=== PATIENT | female | born 1985 | race Caucasian/White ===

== ENCOUNTER 2023-11-04 10:03 | Outpatient (CLI) | payer MEDICAID, SELFPAY ==
--- OUTSIDE RECORDS SUMMARY | 2023-11-10 09:31 | XMS_ITS | Patient Health Record ---
Author Name Unknown Organization [facility] Address [address] [facility] [address] [place] [address] Care Team Providers Care Cable Tv Installer Name Role Phone Chaya HANDY, Aparna Primary Care Provider Shannon Hilario Unavailable [phone] ALLERGIES Allergen (clinical drug ingredient) Drug/Non Drug Allergy documented on EMR Reaction Allergy Type Onset Date Status Penicillin (uncoded) Unknown Allergy Active Trihydrate (uncoded) Unknown Allergy Active ampicillin Ampicillin Unknown Drug Allergy Activ e REASON FOR REFERRAL No Information MEDICATIONS Medication SIG (Take, Route, Frequency, Duration) Notes Start Date End Date Status Isibloom 0.15-30 MG-MCG 1 tablet Orally Once a day for 28 day(s) Active Premsyn PMS 500-25-15 MG 2 tablets as ne eded Orally every 6 hrs Active Fruity Chews/Iron 1 tablet Orally qd Active MiraLax as directed Orally 07/18/2013 Active Melatonin Gummies 2.5 MG 2 gummies (5mg) Active LORazepam 1mg 1 mg Orally 30 minut es prior to dental appointments Active Depakote Sprinkles (125 MG) 4 capsules ( 500mg) Orally three times daily for 30 days Active levOCARNitine (330 MG) 1 tablet (330mg) Orally Twice a day for 30 days Active Vitamin D3 50 MCG (2000 UT) 1 capsule Or ally Once a day for 30 day(s) Active Calcium 600 MG 1 tablet Orally Once a day Active hydrOXYzine Pamoate 100 mg 1 tablet 90 m inutes prior to dental appointment Orally Active SOCIAL HISTORY Sex Assigned At : Social History Observation Description Sex Assigned At Unknown Alcohol Question Answer Notes Did you have a drink containing alcohol in the p ast year? No Points 0 Interpretation Negative Tobacco Use Question Answer Notes Are you a: No PROBLEMS Problem Type ICD Code Onset Dates Problem Status W/U Status Risk SNOMED Code Notes Problem Autistic disorder, current or active state (299.00) Active confirmed Active infantil e autism (227902242) Problem Anxiety state, unspecified (300.00) Active confirmed Anxiety state (207661466) Problem Severe mental retardation (318.1) Active confirmed Severe mental retardation (Intelligence Quotient 20-34) (19508726) Problem Localization-re lated (focal) (partial) epilepsy and epileptic syndromes with complex partial seizures, with intractable epilepsy (345.41) Active confirmed Epilepsy characterized by intractable complex partial seizures (532914638) Problem Unspecified epilepsy without mention of intractable epilepsy (345.90) Active confirmed Epilepsy (44274426) Problem Abnormal weight gain (783.1) Active confirmed Abnormal weight gain (801660297) Problem 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 confirmed Symbolic dysfunction (271477262) Problem Single seizure (780.39) Active confirmed Single seizure (002068969) Problem Other generalized epilepsy and epileptic syndromes, not intractable, 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) Active confirmed Generalized epilepsy (27850465) Problem Other epilepsy, not intractable, without status epilepticus (G40.802) Active confirmed Epilepsy, not intractable (055233042) Problem Other piano mechanic apprentice (current) drug therapy (Z79.899) Active confirmed Long-term curre nt use of drug therapy (534177380) VITAL SIGNS Heart Rate 87 /min 03/17/2023 Blood pressure diastolic 81 mm Hg 03/17/2023 Height-cm 172.72 cm 03/17/2023 Height 68 in 03/17/2023 Blood pressure systolic 137 mm Hg 03/17/2023 Weight 112.5 kg 03/17/2023 BMI 37.71 kg/m2 03/17/2023 Encounters Encounter Location Date Provider Diagnosis [facility] [address] [place] [address] 03/17/2023 Shannon Raza Other epilepsy, not intractable, without status epilepticus G40.802 ; Other piano mechanic apprentice (current) drug therapy Z79.899 and Other generalized epilepsy and epileptic syndromes, not intractable, without status epilepticus G40.409 [facility] [address] [place] [address] 01/27/2023 Shannon Raza [facility] [address] [place] [address] 01/31/2023 Shannon Raza ASSESSMENTS Encounter Date Diagnosis Assessment Notes Treatment Notes Treatment Clinical Notes 03/17/2023 Other epilepsy, not intractable, without status epilepticus (ICD-10 - G40.802) 03/17/2023 Other piano mechanic apprentice (current) drug therapy (ICD-10 - Z79.899) 03/17/2023 Other generalized epilepsy and epileptic syndromes, not intractable, without status epilepticus (ICD-10 - G40.409) PLAN OF TREATMENT Pending Test Test Name Order Date VALPROIC ACID, TOTAL & FREE 10/01/2019 VALPROIC ACID, TOTAL & FREE 11/24/2020 VALPROIC ACID, TOTAL & FREE 01/28/2022 COMPREHENSIVE METABOLIC PANEL 11/24/2020 COMPREHENSIVE METABOLIC PANEL 10/01/2019 COMPREHENSIVE METABOLIC PANEL 01/28/2022 CBC (INCLUDES DIFF/PLT) 10/01/2019 CBC (INCLUDES DIFF/PLT) 11/24/2020 CBC (INCLUDES DIFF/PLT) 01/28/2022 AMMONIA (P) 11/24/2020 AMMONIA (P) 10/01/2019 Future Test Test Name Order Date HEPATIC FUNCTION PANEL 03/17/2023 CBC (INCLUDES DIFF/PLT) 03/17/2023 VALPROIC ACID 03/17/2023 VALPROIC ACID, FREE 03/17/2023 Insurance Providers Payer Name Payer Address Payer Phone Subscriber Number Group Number Insured Name Patient Relationship to Insured Coverage Start Date Coverage End Date [place] [address] [address] [place] [address] [id number] Sidra Ndiaye Self - patient is the insured MEDICAL (GENERAL) HISTORY Medical History History ICD Code Epilepsy, onset at age 3. Mental retardation. Autistic behaviors. Surgical History Surgery Date(Month/Year) none Hospitalization History Reason Date(Month/Year) mental health reasons 07/2012
--- OUTSIDE RECORDS SUMMARY | 2023-11-10 09:31 | XMS_ITS | Clinical Summary ---
Author Name Unknown Organization [facility] Address [place], [place] [address] Care Team Providers Care Plate Painter Name Role Phone Enma Larkin MD Primary Care Prov ider Peter August MD Unavailable [phone] Allergies Active Allergy Reactions Criticality Noted Date Comments Ampicillin 07/11/2007 Unlisted Allergen (Include D etail In Comments) *Unknown 11/14/2017 Trihydrate Penicillins 07/11/2007 Medications Medication Sig Dispensed Refills Start Date End Date Status ibuprofen (ADVIL; MOTRIN) 200 mg tablet Take 1 tablet by mouth every 4 hours if needed. 90 tablet 12 08/06/2014 Active acetaminophen (TYLENOL) 325 mg tabletIndications:P ain Take 2 Tablets (650 mg) by mouth every 4 hours if needed. Max acetaminophen dose: 4000mg in 24 hrs. 90 tablet. 3 07/30/2021 Active Calcium-Cholecalcif syeda, D3, (CALCIUM 500+D) 500 mg(1,250mg) -400 unit chewable tabletIndications:E ncounter for herb and vitamin supplement management Take 1 tablet by mouth once daily. 90 Tablet 4 07/30/2021 Active cholecalciferol (Vitamin D-3) 2,000 unit capsuleIndications: Vitamin D deficiency Take 1 Capsule (2,000 units) by mouth once daily. 90 capsule. 3 07/30/2021 Active multivit with min-folic acid (One-A-Day VitaCraves) 200 mcg chewIndications:Enc ounter for herb and vitamin supplement management Chew by mouth. 180 Tablet 4 07/30/2021 Active medication order composerIndications :Severe intellectual disabilities Over the counter mouth wash daily 0 01/07/2022 Active levOCARNitine (CARNITOR) 330 mg tabletIndications:P ervasive developmental disorder TAKE ONE TABLET BY MOUTH TWICE A DAY AFTER MEALS FOR SEIZURE 180 tablet. 4 08/02/2022 Active divalproex sprinkles (DEPAKOTE SPRINKLES) 125 mg capsuleIndications: Convulsions, unspecified convulsion type (HC) TAKE 4 CAPS (500MG) BY MOUTH THREE TIMES DAILY 372 Capsule 2 01/13/2023 Active acetaminophen-parab rom-pyrilam (Premsyn PMS) 500-25-15 mg tabIndications:PMDD (premenstrual dysphoric disorder) Multi symptom Pamprin 90 Tablet 4 08/04/2023 Active desogestrel-ethinyl estradiol 0.15-30 mg-mcg (Isibloom) tabletIndications:S evere intellectual disabilities Take 1 Tablet by mouth once daily. 84 Tablet 4 08/04/2023 Active Disposable Gloves pckgIndications:Sev ere intellectual disabilities As directed. 400 Each 4 08/04/2023 Active hydrOXYzine pamoate (VISTARIL) 50 mg capsuleIndications: Severe intellectual disabilities,Anxiet y state TAKE two CAPSULES BY MOUTH ONCE PRIOR TO DENTAL PROCEDURES. Hold until staff calls 2 Capsule 4 08/04/2023 Active LORazepam (ATIVAN) 1 mg tabletIndications:O ther dental procedure status TAKE 3 TABLETS BY MOUTH 90 MINUTES PRIOR TO DENTAL APPOINTMENTS. Hold until calls 3 Tablet 0 08/04/2023 Active melatonin 2.5 mg chewIndications:Ins omnia, idiopathic Chew 5 mg by mouth. may take additional 2.5 mg dose (in addition to regular 5 mg) if needed. ( Per standing orders) 90 Tablet 4 08/04/2023 Active polyethylene glycoL (Gavilax) 17 gram/scoop powderIndications:C onstipation, unspecified constipation type MIX 17GMS IN LIQUID AND DRINK ONCE DAILY (MAY TAKE TWICE DAILY IF NEEDED) 1530 g 3 08/04/2023 Active pseudoephedrine (SUDAFED) 30 mg tabletIndications:N bety congestion Take 2 Tablets (60 mg) by mouth every 6 hours if needed for Nasal Congestion. 20 Tablet 5 08/04/2023 Active Active Problems Problem Noted Date Diagnosed Date Active infantile autism 01/07/2022 Seasonal affective disorder 10/03/2018 Unexplained weight gain 11/23/2013 Localization-related (focal) (partial) epilepsy and epileptic syndromes with complex partial seizures, with intractable epilepsy 11/13/2013 Anxiety State, Unspecified; episodic 07/28/2009 Severe intellectual disabilities Other convulsions Overview: Dr. Hailee Obrien Unspecified pervasive develo pmental disorder, residual state Overview: with Autism Other symbolic dysfunction(784.69) Overview: Speech and motor Immunizations Name Administration Dates Next Due AMB Influenza, IIV4 PF (=>6 mos Flulaval,Fluzone Fluarix)(Flu Clinic Only) 08/29/2018 COVID-19 vaccine (Moderna 100mcg/0.5mL) PF, MDV 01/22/2021,12/24/2020 DT (Age < 7 years) 04/13/1990 Influenza, IIV3 (Age >=3 years) 08/02/2013 Influenza, IIV4 08/04/2023, 2,09/01/2021,2020,07/29/2020,07/16/2019,08/02/2017,1 Influenza, IIV4 (=>6mos) MDV 08/07/2015 Oral Polio Vaccine 04/28/1987,10/04/1986, 985 Td, Preservative Free (age > = 7 Years) 12/07/2016 Tdap 07/11/2007 Tuberculin (PPD) 07/15/2008,07/11/2007 Family History Medical History Relation Name Comments Unknown Father Unknown Mother Relation Name Status Comments Father Mother Social History Tobacco Use Types Packs/Day Years Used Date Smoking Tobacco: Never Smokeless Tobacco: Never Tobacco Cessation:Counseling Given: Yes Comments:parents smoke, she visits them every other weekend Alcohol Use Standard Drinks/Week Comments No 0 (1 standard drink = 0.6 oz pur e alcohol) PHQ-2 Answer Date Recorded PHQ-2 Score 0 12/31/2018 Social Connections Answer Date Recorded Frequency of Communication with Friends and Fami ly Not on file 06/15/2023 Financial Resource Strain Answer Date R ecorded Difficulty of Paying Living Expenses 3 06/02/2022 Difficulty of Paying Living Expenses Not on file 06/02/2022 Food Insecurity Answer Date Recorded Worried About Running Out of Food in the Last Ye ar 1 06/02/2022 Transportation Needs Answer Date Record ed Lack of Transportation (Medical) 1 06/02/2022 Housing Stability Answer Date Recorded Unable to Pay for Housing in the Last Year 1 06/02/2022 Sex and Gender Information Value Date Recorded Sex Assigned at Not on file Gender Identity Not on file Sexual Orientation Not on file Obstetrics History Para Term AB IAB SAB Ectopic Multiple Livin g Live Births 0 Last Filed Vital Signs Vital Sign Reading Time Taken Comments Blood Pressure 130/86 08/04/2023 10:21 AM CDT Pulse 83 08/04/2023 10:21 AM CDT Temperature 36.8 ??C (98.3 ??F) 02/24/2022 9:03 AM CD T Respiratory Rate 18 10/13/2022 10:4 5 AM BOTTLE PACKER Oxygen Saturation 95% 08/04/2023 10: 21 AM CDT Inhaled Oxygen Concentration - - Weight 110.9 kg (244 lb 6.4 oz) 023 10:21 AM CDT Height 174 cm (5' 8.5) 08/04/2023 10:2 1 AM CDT Body Mass Index 36.62 08/04/2023 10:21 AM CDT Plan of Treatment Health Maintenance Due Date Last Done Comments HIV for age 15-65 2000 COVID-19 vaccine series ( season) 2023 09/01/2021, 01/22/2021, 12/24/2020 BMI (ht and wt on same day) for age 18+ 08/04/2024 08/04/2023, 08/02/2022, 06/02/2022, Additional history exists Pap test for age 21-65 02/11/2025 02/11/2022, 2021 Tetanus booster 12/07/2026 12/07/2016, 07/11/2007 Tdap Completed 07/11/2007 Hepatitis C screening for age 18-79 Completed 10/13/2022 Influenza for age 9-49 Completed 3, 08/02/2022, 09/01/2021, Additional history exists Pneumococcal series for age 6-64 Aged Out No longer eligible based on patient's age to complete this topic Advance Directives Latest Code Status on File Code Status Date Activated Date Inactivated Comments Full Code 11/27/2013 12:34 PM 12/04/2013 2:26 PM Care Teams Plate Painter Relationship Specialty Start Date End Date Enma Larkin MD [address] [place] [address] PCP - General 04/07/06 Peter August MD [address] [place] [address] Orthopedics Surgery - Orthopedic 09/11/13
== END 2023-11-04 10:04 | disposition home or self-care (01) ==
LOC: NFLDREF 11-10 09:27
PROVIDERS: Visit Provider Nurse Practitioner
DX: N30.01 Acute cystitis with hematuria (principal); R42 Dizziness and giddiness; R46.89 Other symptoms and signs involving appearance and behavior
CPT/HCPCS: 87086

== ENCOUNTER 2024-02-19 10:13 | Outpatient (CLI) | payer MEDICAID, SELFPAY ==
--- OUTSIDE RECORDS SUMMARY | 2024-02-20 05:09 | XMS_ITS | Clinical Summary ---
Author Name Unknown Organization [facility] Address [place], [place] [address] Care Team Providers Care French Lecturer Name Role Phone Enma Larkin MD Primary Care Prov ider Peter August MD Unavailable [phone] Allergies Active Allergy Reactions Criticality Noted Date [...] DENTAL APPOINTMENTS. Hold until calls 3 Tablet 08/04/2023 Active melatonin 2.5 mg chewIndications:Ins omnia, [...] IIV3 (Age >=3 years) 08/02/2013 Influenza, IIV4 08/04/2023,,09/01/2021,2020,07/29/2020,07/16/2019,08/02/2017,1 Influenza, IIV4 (=>6mos) MDV 08/07/2015 Oral Polio [...] Respiratory Rate 18 10/13/2022 10:4 5 AM WELL DRILL OPERATOR ROTARY DRILL Oxygen Saturation 95% 08/04/2023 10: 21 AM CDT Inhaled Oxygen Concentration - - Weight 110.9 kg (244 lb 6.4 oz) 023 10:21 AM CDT Height 174 cm (5' 8.5) 08/04/2023 10:2 1 AM CDT Body Mass Index 36.62 08/04/2023 10:21 AM CDT Plan of Treatment Health Maintenance Due Date Last Done Comments HIV for age 15-65 2000 COVID-19 vaccine series (2022- season) 2023 09/01/2021, 01/22/2021, 12/24/2020 Influenza for age 9-49 07/01/2024 , 08/02/2022, 09/01/2021, Additional history exists BMI (ht and wt on same day) for age 18+ 08/04/2024 08/04/2023, 08/02/2022, 06/02/2022, Additional history exists Pap test for age 21-65 02/11/2025 02/11/2022, 2021 Tetanus booster 12/07/2026 12/07/2016, 07/11/2007 Tdap Completed 07/11/2007 Hepatitis C screening for age 18-79 Completed 10/13/2022 Pneumococcal series for age 6-64 Aged Out No longer eligible based on patient's age to complete this topic Procedures Procedure Name Priority Date/Time Associated Diagnosis Comments ANTI HCV Routine 10/13/2022 11:28 AM WELL DRILL OPERATOR ROTARY DRILL Encounter for hepatitis C screening test for low risk patient RN INFORMATICS THIN PREP PAP SCREEN IMAGED Routine 02/11/2022 12:14 PM CDT from Last 3 Months or Most Recently Relevant to Health Maintenance Results * ANTI HCV (10/13/2022 11:28 AM WELL DRILL OPERATOR ROTARY DRILL) Pathologist [facility] HEPATITIS C ANTIBODY Non-React bebe Non-React bebe 10/15/2022 9:00 PM WELL DRILL OPERATOR ROTARY DRILL [facility] Comment:Antibodies to HCV no t detected; does not exclude the possibility of exposure to HCV. Blood BLOOD SPECIMEN / Unknown Venipuncture / Unknown 10/13/2022 11:28 AM WELL DRILL OPERATOR ROTARY DRILL 10/13/2022 11:28 AM WELL DRILL OPERATOR ROTARY DRILL Enma Larkin MD SEND OUTS [facility] [address] [place] [address], * RN INFORMATICS THIN PREP PAP SCREEN IMAGED (02/11/2022 12:14 PM CDT) Pathologist [facility] Case Report Gynecologic Cytology Report ? Case: [id number] ? Authorizing Provider: ??Socorro Mcintosh MD ?Collected: ? 02/11/2022 1214 ? Ordering Location: ? [facility] ?Received: ?02/12/2022 0752 ? First Screen: ?Mery Houser ? Pathologist: ? Ian Huitron Jr., ? MD ? Specimen: ?RN INFORMATICS ThinPrep Vial Screening, Cervical/Vaginal ? 02/15/2022 12:58 PM CDT [facility] INTERPRETATION/ RESULT NEGATIVE FOR INTRAEPITHELIAL LESION OR MALIGNANCY (NIL) (none) 02/15/2022 12:58 PM CDT [facility] R NON-NEOPLASTIC FINDING(S) Reactive cellular changes associated with inflammation/repa ir 02/15/2022 12:58 PM CDT [facility] SPECIMEN ADEQUACY Satisfactory for evaluation Endocervical component present 02/15/2022 12:58 PM CDT [facility] HPV REQUEST HPV and PAP 02/15/2022 12:58 PM CDT [facility] Date of LMP 01/13/2022 02/15/2022 12:58 PM CDT [facility] Menstrual Status Hormonally Suppressed 02/15/2022 12:58 PM CDT [facility] Comment: control pill Additional Information 02/15/2022 12:58 PM CDT [facility] Comment: Interpreted at [facility] - [address], [place] [address] Automated Review Successful 02/15/2022 12:58 PM CDT [facility] Comment:Specimen processed s uccessfully by automated janitorial account manager device, ThinPrep Imaging System, [employer] ANCILLARY TESTING RN INFORMATICS HPV Ordered, Please see separate report 02/15/2022 12:58 PM CDT [facility] Note The pap test is a screening technique, not a diagnostic procedure. It is used primarily to screen for squamous cancers and precursor lesions. Published studies have shown that it is subject to both false negative and false positive results. The pap test should not be used as the sole means to diagnose or exclude pre-malignant and malignant lesions. 02/15/2022 12:58 PM CDT [facility] Other (Cervical/Vagina l) 02/11/2022 12:14 PM CDT 02/12/2022 7:52 AM CDT Socorro Mcintosh MD PATHOLOGY/CYTOLOGY [facility] [address] [place] [address], [place] from Last 3 Months or Most Recently Relevant to Health Maintenance Advance Directives * Full Code (Latest Code Status on File) Date Activated Date Inactivated Comments 11/27/2013 12:34 PM 12/04/2013 2:26 PM Care Teams French Lecturer Relationship Specialty Start Date End Date Enma Larkin MD [address] [place] [address] PCP - General 04/07/06 Peter August MD [address] [place] [address] [address] Orthopedics Surgery - Orthopedic 09/11/13
== END 2024-02-19 10:14 | disposition home or self-care (01) ==
LOC: NFLDREF 02-20 05:06
PROVIDERS: Visit Provider Nurse Practitioner
DX: R39.198 Other difficulties with micturition (principal)
CPT/HCPCS: 87086

== ENCOUNTER 2024-03-23 11:15 | Outpatient (CLI) | payer MEDICAID, SELFPAY ==
--- OUTSIDE RECORDS SUMMARY | 2024-04-16 15:37 | XMS_ITS | Clinical Summary ---
Author Organization [employer] [facility] Address [place], [place] [address] Care Team Providers Care Parts Washer Name Role Phone Enma Larkin MD Primary Care Prov ider Peter August MD Unavailable [phone] Allergies Active Allergy Reactions Criticality Noted Date [...] Respiratory Rate 18 10/13/2022 10:4 5 AM SCHOOL CUSTODIAN Oxygen Saturation 95% 08/04/2023 10: 21 AM [...] series ( season) 2023 09/01/2021, 01/22/2021, 12/24/2020 Influenza for [...] Comments ANTI HCV Routine 10/13/2022 11:28 AM SCHOOL CUSTODIAN Encounter for hepatitis C screening test for low risk patient SUPERVISOR HARDBOARD THIN PREP PAP SCREEN IMAGED Routine 02/11/2022 12:14 PM CDT from Last 3 Months or Most Recently Relevant to Health Maintenance Results * ANTI HCV (10/13/2022 11:28 AM SCHOOL CUSTODIAN) Pathologist [facility] HEPATITIS C ANTIBODY Non-React bebe Non-React bebe 10/15/2022 9:00 PM SCHOOL CUSTODIAN [facility] Comment:Antibodies to HCV no t detected; does not exclude the possibility of exposure to HCV. Blood BLOOD SPECIMEN / Unknown Venipuncture / Unknown 10/13/2022 11:28 AM SCHOOL CUSTODIAN 10/13/2022 11:28 AM SCHOOL CUSTODIAN Enma Larkin MD SEND OUTS [facility] [address] [place] [address], * SUPERVISOR HARDBOARD THIN PREP PAP SCREEN IMAGED (02/11/2022 12:14 PM CDT) Pathologist [facility] Case Report Gynecologic Cytology Report ? Case: [id number] ? Authorizing Provider: ??Socorro Mcintosh MD ?Collected: ? 02/11/2022 1214 ? Ordering Location: ? [facility] ?Received: ?02/12/2022 0752 ? First Screen: ?Mery Houser ? Pathologist: ? Ian Huitron Jr., ? MD ? Specimen: ?SUPERVISOR HARDBOARD ThinPrep Vial Screening, Cervical/Vaginal ? 02/15/2022 12:58 PM CDT [facility] INTERPRETATION/ RESULT NEGATIVE FOR INTRAEPITHELIAL LESION OR MALIGNANCY (NIL) (none) 02/15/2022 12:58 PM CDT [facility] R NON-NEOPLASTIC FINDING(S) Reactive cellular changes associated with inflammation/repa ir 02/15/2022 12:58 PM CDT [facility] SPECIMEN ADEQUACY Satisfactory for evaluation Endocervical component present 02/15/2022 12:58 PM CDT [facility] HPV REQUEST HPV and PAP 02/15/2022 12:58 PM CDT [facility] Date of LMP 01/13/2022 02/15/2022 12:58 PM CDT [facility] Menstrual Status Hormonally Suppressed 02/15/2022 12:58 PM CDT [facility] Comment: control pill Additional Information 02/15/2022 12:58 PM CDT [facility] Comment: Interpreted at [facility] - [address], [place] [address] Automated Review Successful 02/15/2022 12:58 PM CDT [facility] Comment:Specimen processed s uccessfully by automated global project manager device, ThinPrep Imaging System, [employer] ANCILLARY TESTING SUPERVISOR HARDBOARD HPV Ordered, Please see separate report 02/15/2022 12:58 PM CDT [facility] Note The pap test is a screening technique, not a diagnostic procedure. It is used primarily to screen for squamous cancers and precursor lesions. Published studies have shown that it is subject to both false negative and false positive results. The pap test should not be used as the sole means to diagnose or exclude pre-malignant and malignant lesions. 02/15/2022 12:58 PM T [facility] Other (Cervical/Vagina l) 02/11/2022 12:14 PM CDT 02/12/2022 7:52 AM CDT Socorro Mcintosh MD PATHOLOGY/CYTOLOGY [facility] [address] [place] [address], [place] from Last 3 Months or Most Recently Relevant to Health Maintenance Advance Directives * Full Code (Latest Code Status on File) Date Activated Date Inactivated Comments 11/27/2013 12:34 PM 12/04/2013 2:26 PM Care Teams Parts Washer Relationship Specialty Start Date End Date Enma Larkin MD [address] [place] [address] PCP - General 04/07/06 Peter August MD [address] [place] [address] Orthopedics Surgery - Orthopedic 09/11/13
--- OUTSIDE RECORDS SUMMARY | 2024-04-16 15:37 | XMS_ITS | Patient Health Record ---
Author Organization [facility] Luis Alberto murillo [place] Address [address] [place] [address] Care Team Providers Care Bunch Breaker Name Role Phone Aparna Larkin MD Primary Care Provider Shannon Hilario Unavailable [phone] ALLERGIES Allergen (clinical drug ingredient) Drug/Non Drug [...] (299.00) Active confirmed Active infantil e autism (329724807) Problem Anxiety state, unspecified (300.00) Active confirmed Anxiety state (033192053) Problem Severe mental retardation (318.1) Active confirmed Severe mental retardation (Intelligence Quotient 20-34) (68062422) Problem Localization-re lated (focal) (partial) epilepsy and epileptic syndromes with complex partial seizures, with intractable epilepsy (345.41) Active confirmed Epilepsy characterized by intractable complex partial seizures (674839717) Problem Unspecified epilepsy without mention of intractable epilepsy (345.90) Active confirmed Epilepsy (91300945) Problem Abnormal weight gain (783.1) Active confirmed Abnormal weight gain (736062297) Problem 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 confirmed Symbolic dysfunction (024833192) Problem Single seizure (780.39) Active confirmed Single seizure (659177764) Problem Other generalized epilepsy and epileptic syndromes, not intractable, 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) Active confirmed Generalized epilepsy (07936373) Problem Other epilepsy, not intractable, without status epilepticus (G40.802) Active confirmed Epilepsy, not intractable (867407321) Problem Other long term acute care registered nurse (current) drug therapy (Z79.899) Active confirmed Long-term curre nt use of drug therapy (760233997) PLAN OF TREATMENT Pending Test Test Name [...] Start Date Coverage End Date MED[place]ID [place] [address] [address] [place] [address] [phone] [id number] Sidra Ndiaye Self - patient is the insured MEDICAL (GENERAL) HISTORY Medical History History ICD Code Epilepsy, onset at age 3. Mental retardation. Autistic behaviors. Surgical History Surgery Date(Month/Year) none Hospitalization History Reason Date(Month/Year) mental health reasons 07/2012
== END 2024-03-23 11:16 | disposition home or self-care (01) ==
LOC: NFLDREF 04-16 15:35
PROVIDERS: Visit Provider Nurse Practitioner
DX: R53.83 Other fatigue (principal); B34.9 Viral infection, unspecified
CPT/HCPCS: 87086

== ENCOUNTER 2025-10-20 13:36 | Emergency (ER) | payer MEDICAID, SELFPAY ==
--- OUTSIDE RECORDS SUMMARY | 2025-10-20 13:38 | XMS_ITS | Clinical Summary ---
Author Organization [facility] Address [address] [place] [address] Care Team Providers Care Master Chef Name Role Phone Enma Larkin MD Primary Care Prov ider Peter August MD Unavailable [phone] Allergies Active AllergyReactionsCriticalityNoted IwzjRzbtanqjRzleqcueosPqvr73/11/2007 Has had amoxicillin 2023 X2 with issues Unlisted Allergen (Include Detail In Comments)*Qaxhrim7211/14/2017 Trihydrate ZrlcqqnhlipKbutOxb35/11/2007 Has had amoxicillin 2023 X2 without issues/reaction Medications MedicationSigDispense QuantityRefillsLast FilledStart DateEnd DateStatus ibuprofen (ADVIL; MOTRIN) 200 mg tablet Take 1 tablet by mouth every 4 hours if needed. 90 tablet ctive acetaminophen (TYLENOL) 325 mg tablet Indications:PainTake 2 Tablets (650 mg) by mouth every 4 hours if needed. Max acetaminophen dose: 4000mg in 24 hrs. 90 tablet. ctive Calcium-Cholecalciferol, D3, (CALCIUM 500+D) 500 mg(1,250mg) -400 unit chewable tablet Indications:Encounter for herb and vitamin supplement managementTake 1 tablet by mouth once daily. 90 Tablet ctive cholecalciferol (Vitamin D-3) 2,000 unit capsule Indications:Vitamin D deficiencyTake 1 Capsule (2,000 units) by mouth once daily. 90 capsule. ctive multivit with min-folic acid (One-A-Day VitaCraves) 200 mcg chew Indications:Encounter for herb and vitamin supplement managementChew by mouth. 180 Tablet ctive medication order composer Indications:Severe intellectual disabilitiesOver the counter mouth wash daily0 01/07/2022ctive nvinieyxfbalh-jmvtpyzg-ieyneks (Premsyn PMS) 500-25-15 mg tab Indications:PMDD (premenstrual dysphoric disorder)Multi symptom Pamprin 90 Tablet ctive Disposable Gloves pckg Indications:Severe intellectual disabilitiesAs directed. 400 Each ctive melatonin 2.5 mg chew Indications:Insomnia, idiopathicChew 5 mg by mouth. may take additional 2.5 mg dose (in addition to regular 5 mg) if needed. ( Per standing orders) 90 Tablet ctive pseudoephedrine (SUDAFED) 30 mg tablet Indications:Nasal congestionTake 2 Tablets (60 mg) by mouth every 6 hours if needed for Nasal Congestion. 20 Tablet ctive divalproex (Depakote) 125 mg Delayed-Release tablet Take 1 Tablet (125 mg) by mouth three times daily.12/25/2024tive desogestrel-ethinyl estradiol 0.15-30 mg-mcg (Isibloom) tablet Indications:Severe intellectual disabilitiesTake 1 Tablet by mouth once daily. 84 Tablet tive hydrOXYzine HCL (ATARAX) 25 mg tablet Indications:Other dental procedure statusTake 1 Tablet (25 mg) by mouth every 6 hours if needed for Anxiety (take 90 minutes before dental appointment for anxiety). 6 Tablet tive levOCARNitine (CARNITOR) 330 mg tablet Indications:Pervasive developmental disorder (HC)TAKE ONE TABLET BY MOUTH TWICE A DAY AFTER MEALS FOR SEIZURE 180 Tablet tive LORazepam 1 mg tablet Indications:Other dental procedure statusTAKE 3 TABLETS BY MOUTH 90 MINUTES PRIOR TO DENTAL APPOINTMENTS 3 Tablet tive polyethylene glycoL (Gavilax) 17 gram/scoop powder Indications:Constipation, unspecified constipation typeMIX 17GMS IN LIQUID AND DRINK ONCE DAILY (MAY TAKE TWICE DAILY IF NEEDED) 1530 g 5Active Active Problems ProblemNoted DateDiagnosed DateActive infantile kghiik1401/07/2022easonal affective qzywambj40/04/2018Unexplained weight gain11/23/2013Localization- related (focal) (partial) epilepsy and epileptic syndromes with complex partial seizures, with intractable hcycminf98/14/2014nxiety State, Unspecified; efbtwfnu79/28/2009Severe intellectual disabilitiesOther convulsions Overview (07/15/2008): Dr. 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) Overview (07/15/2008): Speech and motor Encounters DateTypeDepartmentCare TovwFxkakqgmzrk77/14/2025 11:10 AM CDTOffice [facility] [address] [place] [address] Enma Larkin MD Physical (40 yo female)08/13/2025Travelfrom Last 3 Months Immunizations ImmunizationAdministration DatesNext DueAMB Influenza, IIV4 PF (=>6 mos Flulaval,Fluzone Fluarix)(Flu Clinic Only)08/29/2018COVID-19 vaccine (Moderna 100mcg/0.5mL) PF, MDV01/22/2021,1DT (Age < 7 years)04/13/1990INFLUENZA, IIV3 PF (AGE >= 6 MO)08/13/2025,08/07/2024Influenza, IIV3 (Age >=3 years) 08/02/2013Influenza, NUP709,08/02/2022,09/01/2021,07/30/2021,07/29/2020, 07/16/2019,08/02/2017,08/06/2014Influenza, IIV4 (=>6mos) MDV1Oral Polio Agitwyc3404/28/1987,10/04/1986,1985Td, Preservative Free (age >= 7 Years) 12/07/2016Tdap07/11/2007Tuberculin (PPD)07/15/2008,07/11/2007 Family History Medical HistoryRelationNameCommentsUnknownFatherUnknownMotherRelationNameStatus CommentsFatherMother Social History Tobacco UseTypesPacks/DayYears UsedDateSmoking Tobacco: NeverSmokeless Tobacco: Never Tobacco Cessation:Counseling Given: Yes Comments:parents smoke, she visits them every other weekend Alcohol UseStandard Drinks/WeekCommentsNo0 (1 standard drink = 0.6 oz pure alcohol)PHQ-2AnswerDate RecordedPHQ-2 Ourug029Social ConnectionsAnswer Date RecordedDo you often feel lonely or isolated from those around you?0 08/13/2025lcohol UseAnswerDate RecordedHow often do you have a drink containing alcohol?verage Number of DrinksNot on file08/13/2025How often do you have five or more drinks on one occasion?Financial Resource Strain AnswerDate RecordedDifficulty of Paying Living Lbihuyum158/14/2025Difficulty of Paying Living ExpensesNot on file08/13/2025Food InsecurityAnswerDate RecordedDo you worry your food will run out before you are able to buy more? Transportation NeedsAnswerDate RecordedDoes lack of transportation keep you from medical appointments?Does lack of transportation keep you from work, meetings or getting things that you need?Housing StabilityAnswerDate RecordedWhat is your housing situation today?UtilitiesAnswerDate RecordedDo you have trouble paying for utilities (for example, heat, electricity, water, phone)?CommentsNoSex and Gender InformationValueDate RecordedSex Assigned at BirthNot on fileLegal SexFemale 11/13/2012 5:19 AM CSTGender IdentityNot on fileSexual OrientationNot on file Obstetrics History GravidaParaTermPretermABIABSABEctopicMultipleLivingLive Births0 Last Filed Vital Signs Vital SignReadingTime TakenCommentsBlood Iktsurbq432/7310 10:01 AM CDT Ccawb610308/13/2025 11:19 AM JLWMvjathydrgt12.8 ??C (98.3 ??F)02/24/2022 9:03 AM CDTRespiratory Peec032912/14/2021 10:45 AM CSTOxygen Yqpbsqudjs65%08/13/2025 11:19 AM CDTInhaled Oxygen Concentration--Ohtgne351.1 kg (245 lb)08/13/2025 11:19 AM GCKUmmggh573.5 cm (5' 7.5)08/13/2025 11:19 AM CDTBody Mass Index37.8108/13/2025 11:19 AM CDT Plan of Treatment Health MaintenanceDue DateLast DoneCommentsHIV for age 15-65003/19/2000Hepatitis B series for 19+ (1 of 3 - 19+ 3-dose series)2004HPV series for age 9-45 (1 - 3-dose SCDM series)2012COVID-19 vaccine series (2024- season) 5007/24/2024, 10/04/2023, 09/01/2021, Additional history existsBMI (ht and wt on same day) for age 18+61, 08/07/2024, 08/04/2023, Additional history existsPap test for age 21-65, 02/11/2022 Postponed from 02/11/2025 (Provider discretion)Tetanus ipwanoa6212/07/2026 12/07/2016, 07/11/2007Hepatitis C screening for age 18-73Ftqculspz13/14/2022 Influenza IyagxieJxyqrzrkz63/14/2025, 08/07/2024, 08/04/2023, Additional history existsPneumococcal series for age 6-49Aged OutNo longer eligible based on patient's age to complete this topic Procedures Procedure NamePriorityDate/TimeAssociated DiagnosisCommentsCOMP METABOLIC PANEL Rqmjldm1208/13/2025 12:03 PM CDT Fatigue, unspecified type CBC W PLT NO JDARXxnsnzq69/14/2025 12:03 PM CDT Fatigue, unspecified type TSH WITH SOVGOHIxdhyqp43/14/2025 12:03 PM CDT Fatigue, unspecified type ANTI DUJLvfzqfe02/14/2022 11:28 AM SINGE WINDER Encounter for hepatitis C screening test for low risk patient STITCHDOWNS TOE FORMER THIN PREP PAP SCREEN XLAXWSLbpzbqr60/14/2022 12:14 PM CDT from Last 3 Months or Most Recently Relevant to Health Maintenance Results * TSH WITH REFLEX (08/13/2025 12:03 PM CDT)ComponentValueRef RangeTest Method Analysis TimePerformed AtPathologist SignatureTSH W/REFLEX TO FT41.57mIU/L 08/14/2025 4:44 AM CDTQUEST DIAGNOSTICSComment: ?Reference Range ? > or = 20 Years 0.40-4.50 ? Ranges ?First trimester ?0.26-2.66 ?Second trimester ?? 0.55-2.73 ?Third trimester ?0.43-2.91 Specimen (Source)Anatomical Location / LateralityCollection Method / Volume Collection TimeReceived TimeBloodBLOOD SPECIMEN / UnknownQuest Collect / Unknown 08/13/2025 12:03 PM CDT1 12:03 PM CDT Narrative Authorizing ProviderResult TypeResult StatusCynthia Tanya Larkin MD CHEMISTRYFinal ResultPerforming OrganizationAddressCity/State/ZIP CodePhone Number [facility] [address] [place] [address], * (ABNORMAL) CBC W PLT NO DIFF (08/13/2025 12:03 PM CDT)ComponentValueRef Range Test MethodAnalysis TimePerformed AtPathologist SignatureWHITE BLOOD CELL COUNT11.8(H)3.8 - 10.8 Thousand/uL08/14/2025 4:44 AM CDTQUEST DIAGNOSTICSRED BLOOD CELL COUNT4.663.80 - 5.10 Million/uL08/14/2025 4:44 AM CDTQUEST TCAIWIHXMKYZPMOTCCJGA52.611.7 - 15.5 g/dL08/14/2025 4:44 AM CDTQUEST BNMIVGCWXIAJKOMAECFZT65.235.0 - 45.0 %08/14/2025 4:44 AM CDT[facility] MCV86.380.0 - 100.0 fL08/14/2025 4:44 AM CDTQUEST WEAOIYCIDKXTMZ02.227.0 - 33.0 pg08/14/2025 4:44 AM CDTQUEST JAUHFYWFBBEBTFS85.832.0 - 36.0 g/dL 08/14/2025 4:44 AM CDTQUEST DIAGNOSTICSComment: For adults, a slight decrease in the calculated MCHC value (in the range of 30 to 32 g/dL) is most likely not clinically significant; however, it should be interpreted with caution in correlation with other red cell parameters and the patient's clinical condition. RDW13.311.0 - 15.0 %08/14/2025 4:44 AM CDTQUEST DIAGNOSTICSPLATELET WACXF025049 - 400 Thousand/uL08/14/2025 4:44 AM CDTQUEST YZFAUXQTPJRRYK89.17.5 - 12.5 fL 08/14/2025 4:44 AM CDTQUEST DIAGNOSTICSSpecimen (Source)Anatomical Location / LateralityCollection Method / VolumeCollection TimeReceived TimeBloodBLOOD SPECIMEN / UnknownQuest Collect / Tzfndli0108/13/2025 12:03 PM CDT1 12:03 PM CDT Narrative Authorizing ProviderResult TypeResult StatusCynthiiesha Larkin MD HEMATOLOGYFinal ResultPerforming OrganizationAddressCity/State/ZIP CodePhone Number [facility] [id number] [place] [address], * (ABNORMAL) COMP METABOLIC PANEL (08/13/2025 12:03 PM CDT)ComponentValueRef RangeTest MethodAnalysis TimePerformed AtPathologist NxrmzcfvdJUQQKY294650 - 146 mmol/L1 4:44 AM CDTQUEST DIAGNOSTICSPOTASSIUM4.63.5 - 5.3 mmol/L 08/14/2025 4:44 AM CDTQUEST TVHOOTCIWIQUANWJGPX27048 - 110 mmol/L1 4:44 AM CDTQUEST DIAGNOSTICSCARBON KVBGFXG2192 - 32 mmol/L1 4:44 AM CDTQUEST DYTGOGLVEFHERAJMCT5940 - 99 mg/dL08/14/2025 4:44 AM CDTQUEST DIAGNOSTICSComment: ? Fasting reference interval CALCIUM9.28.6 - 10.2 mg/dL08/14/2025 4:44 AM CDTQUEST DIAGNOSTICSCREATININE0.61 0.50 - 0.99 mg/dL08/14/2025 4:44 AM CDTQUEST DIAGNOSTICSBUN/CREATININE RATIOSEE NOTE: (calc)08/14/2025 4:44 AM CDTQUEST DIAGNOSTICSComment: ?? Not Reported: BUN and Creatinine are within ?? reference range. ? GGZL361> OR = 60 mL/min/1.67b39008/14/2025 4:44 AM CDTQUEST DIAGNOSTICSALBUMIN3.6 3.6 - 5.1 g/dL08/14/2025 4:44 AM CDTQUEST DIAGNOSTICSPROTEIN, TOTAL7.46.1 - 8.1 g/dL08/14/2025 4:44 AM CDTQUEST DIAGNOSTICSBILIRUBIN, TOTAL0.40.2 - 1.2 mg/dL 08/14/2025 4:44 AM CDTQUEST DIAGNOSTICSALKALINE RRMLQFBBWML3642 - 125 U/L 08/14/2025 4:44 AM CDTQUEST LNSHMMTDKCHYFZ736 - 29 U/L1 4:44 AM CDT [facility] BRAAICXZEHRKIC3774 - 30 U/L1 4:44 AM CDTQUEST DIAGNOSTICSUREA NITROGEN (BUN)97 - 25 mg/dL08/14/2025 4:44 AM CDTQUEST DIAGNOSTICSGLOBULIN3.8(H) 1.9 - 3.7 g/dL (calc)08/14/2025 4:44 AM CDTQUEST DIAGNOSTICSALBUMIN/GLOBULIN RATIO0.9(L)1.0 - 2.5 (calc)08/14/2025 4:44 AM CDTQUEST DIAGNOSTICSSpecimen (Source)Anatomical Location / LateralityCollection Method / VolumeCollection TimeReceived TimeBloodBLOOD SPECIMEN / UnknownQuest Collect / Gfcmbgs6108/13/2025 12:03 PM CDT1 12:03 PM CDT Narrative Authorizing ProviderResult TypeResult StatusCyntalba Larkin MD CHEMISTRYFinal ResultPerforming OrganizationAddressCity/State/ZIP CodePhone Number [facility] [address] [phone], * ANTI HCV (10/13/2022 11:28 AM SINGE WINDER)ComponentValueRef RangeTest MethodAnalysis TimePerformed AtPathologist SignatureHEPATITIS C ANTIBODYNon-Reactive Non-Plgrgzvp84/16/2022 9:00 PM [facility]STMER[facility] Comment:Antibodies to HCV not detected; does not exclude the possibility of exposure to HCV.Specimen (Source)Anatomical Location / LateralityCollection Method / VolumeCollection TimeReceived TimeBloodBLOOD SPECIMEN / Unknown Venipuncture / Wdjeimq1210/13/2022 11:28 AM CST10/13/2022 11:28 AM SINGE WINDER Narrative Authorizing ProviderResult TypeResult StatusEnma MORELEND OUTSFinal ResultPerforming OrganizationAddressCity/State/ZIP CodePhone Number [facility] [address] [place] [address], * STITCHDOWNS TOE FORMER THIN PREP PAP SCREEN IMAGED (02/11/2022 12:14 PM CDT)ComponentValueRef RangeTest MethodAnalysis TimePerformed AtPathologist SignatureCase Report Gynecologic Cytology Report ? Case: [id number] ? Authorizing Provider: ??Socorro Mcintosh MD ?Collected: ? 02/11/2022 1214 ? Ordering Location: ? [facility] ?Received: ?02/12/2022 0752 ? First Screen: ?Mery Houser ? Pathologist: ? Ian Huitron Jr., ? MD ? Specimen: ?STITCHDOWNS TOE FORMER ThinPrep Vial Screening, Cervical/Vaginal ? 02/15/2022 12:58 PM [facility] INTERPRETATION/RESULTNEGATIVE FOR INTRAEPITHELIAL LESION OR MALIGNANCY (NIL) (none)02/15/2022 12:58 PM [facility] at 1258 CDT OTHER NON-NEOPLASTIC FINDING(S)Reactive cellular changes associated with inflammation/ynngpl8402/15/2022 12:58 PM [facility] LABORATORYSPECIMEN ADEQUACYSatisfactory for evaluation Endocervical component fpjbztc7202/15/2022 12:58 PM [facility] LABORATORYHPV REQUESTHPV and PAP02/15/2022 12:58 PM [facility] LABORATORYDate of LMP3/16// 12:58 PM [facility] LABORATORYMenstrual StatusHormonally Suppressed 02/15/2022 12:58 PM [facility] LABORATORYComment: control pillAdditional Kygewubybby84/18/2022 12:58 PM [facility] LABORATORYComment: Interpreted at [facility] - [address], [place] [address] Automated TdjogfCwmpxcvzww57/18/2022 12:58 PM [facility] LABORATORYComment:Specimen processed successfully by automated director of sustainability programs device, Data [employer] Imaging System, [employer]ANCILLARY TESTING GYNHPV Ordered, Please see separate pobanu3202/15/2022 12:58 PM [facility] C[facility]TRAL LABORATORYNoteThe pap test is a screening technique, not a diagnostic procedure. It is used primarily to screen for squamous cancers and precursor lesions. Published studies have shown that it is subject to both false negative and false positive results. The pap test should not be used as the sole means to diagnose or exclude pre-malignant and malignant lesions.02/15/2022 12:58 PM CDT [facility] LABORATORYSpecimen (Source)Anatomical Location / LateralityCollection Method / VolumeCollection TimeReceived TimeOther (Cervical/Vaginal)02/11/2022 12:14 PM CDT02/12/2022 7:52 AM CDT Narrative Authorizing ProviderResult TypeResult StatusDeakash Mcintosh MD PATHOLOGY/CYTOLOGYFinal ResultPerforming OrganizationAddressCity/State/ZIP Code Phone Number [facility] [address] [place] [address], [place] from Last 3 Months or Most Recently Relevant to Health Maintenance Insurance * Guarantor: Sidra Ndiaye AAccount TypeRelation to PatientDate of BirthPhone Billing AddressPersonal/LtpybuYzhd1985 [address] [place] [address] Advance Directives * Full Code (Latest Code Status on File) Date ActivatedDate InactivatedComments11/27/2013 12:34 PM2 2:26 PM Care Teams Team MemberRelationshipSpecialtyStart DateEnd Date Enma Larkin MD [address] [facility] [place] [address] PCP - General04/07/06 Peter August MD [address] [facility] [address] OrthopedicsSurgery - Qfqyjxdwvy98/12/13
[2025-10-20 13:54] VITALS: BP 111/79; PULSE 95; RESP 18; TEMP 36.9; O2SAT 96
[2025-10-20 14:34] LABS: Appearance Urine Clear (Clear)
[2025-10-20] MEDS: ONDANSETRON ODT 4 MG TAB PO (14:37)
--- NOTE | 2025-10-20 15:17 | ED.FEMALEGU ---
HPI - Female Genitourinary General Chief complaint: Urogenital Problems, Female Stated complaint: Possible UTI Time Seen by Provider: 10/20/25 13:56 History of Present Illness HPI Narrative: Patient is a 40-year-old [facility] resident to develop weakness earlier today which has largely resolved. She was shopping at [employer] with her staff when she became very weak. Patient has had similar symptoms with urinary tract infection. Patient initially went to urgent care and they were unable to get a urine sample. Cath UA today shows some hematuria and bacteria negative nitrites negative leukocyte esterase. Patient is feeling better but still is feeling somewhat fatigued. Staff like her to be treated for urinary tract infection as patient become very ill in the past with UTIs. She does not take oral medications. She has responded in the past to IM Rocephin. Related Data Home Medications ?Medication ?Instructions ?Recorded ?Confirmed calcium carbonate (Calcium 600) 600 mg PO QDAY 11/04/23 10/20/25 cholecalciferol (vitamin D3) 25 25 mcg PO QDAY 11/04/23 10/20/25 mcg (1,000 unit) capsule desogestrel 0.15 mg-ethinyl 1 tab PO QDAY 11/04/23 10/20/25 estradiol 0.03 mg tablet (Isibloom) divalproex 125 mg capsule,delayed 125 mg PO TID 11/04/23 10/20/25 release sprinkle levocarnitine 330 mg tablet 330 mg PO BID 11/04/23 10/20/25 melatonin 3 mg capsule 3 mg PO ONCE 11/04/23 10/20/25 multivitamin 1 tab PO QAM 11/04/23 10/20/25 polyethylene glycol 3350 17 4 g PO ONCE 11/04/23 10/20/25 gram/dose oral powder (Miralax) Allergies Allergy/AdvReac Type Severity Reaction Status Date / Time Penicillins Allergy Unknown Verified 10/20/25 14:01 ampicillin Allergy Verified 10/20/25 14:01 trihydrate Allergy Uncoded 10/20/25 12:50 Review of Systems Status of ROS: Reports: 10 or more systems reviewed and unremarkable except as noted in History and below PFSH PFSH Social History Smoking Status: Never smoker Do you use any of these nicotine containing products: None Second hand tobacco smoke exposure: No How often do you have a drink containing alcohol: never How often do you have six or more drinks on one occasion: Never AUDIT-C Alcohol total score: 0 Non-prescribed substance use: denies use service: No Exam Narrative: Exam Narrative: EXAM GENERAL: Patient appears comfortable and well. EYES: No scleral icterus. LYMPH: No supraclavicular or cervical lymphadenopathy. SKIN: Visible skin seen during exam normal or with benign process only. EXT: No dependent lower extremity pedal edema. HEART: Regular rate and rhythm with no murmurs, rubs, or gallops. LUNGS: Clear to auscultation bilaterally with no crackles or wheezes. ABD: Soft, non tender, non distended. PSYCH: Good eye contact, speech is not pressured. Const: Vital Signs, click to edit/add: Vital Signs - 24 hr 10/20/25 13:54 Temperature 98.5 F Pulse Rate [Pulse Oximeter] 95 Respiratory Rate 18 Blood Pressure [Ri ght Upper Arm] 111/79 Pulse Oximetry 96 Oxygen Delivery Me thod Room Air Course Course ED Course: Patient seen examined. Urine is fairly equivocal O2 given her clinical circumstance I do think g Rocephin is reasonable. Do not see anything other findings on exam today and I do not believe she would benefit from further workup. I did give her 1 g Rocephin and get her back to [facility] with close outpatient follow-up. Vital Signs Vital signs: Initial Vital Signs Temperature 98.5 F 10/20/25 13:54 Temperature Source Temporal Artery Scan 10/20/25 13:54 Pulse Rate 95 10/20/25 13:54 Respiratory Rate 18 10/20/25 13:54 Blood Pressure 111/79 10/20/25 13:54 Blood Pressure Mean 89 10/20/25 13:54 Blood Pressure Position Sitting 10/20/25 13:54 Pulse Oximetry 96 10/20/25 13:54 Oxygen Delivery Method Room Air 10/20/25 13:54 Vital Signs Temperature 98.5 F 10/20/25 13:54 Pulse Rate 95 10/20/25 13:54 Respiratory Rate 18 10/20/25 13:54 Blood Pressure 111/79 10/20/25 13:54 Pulse Oximetry 96 10/20/25 13:54 Oxygen Delivery Method Room Air 10/20/25 13:54 Temperature 98.5 F 10/20/25 13:54 Pulse Rate 95 10/20/25 13:54 Respiratory Rate 18 10/20/25 13:54 Blood Pressure 111/79 10/20/25 13:54 Pulse Oximetry 96 10/20/25 13:54 Oxygen Delivery Method Room Air 10/20/25 13:54 Medications Administered Medications: Discontinued Medications Generic Name Dose Route Start Last Admin Trade Name Elvia PRN Reason Stop Dose Admin Ondansetron HCl 4 mg 10/20/25 14:30 10/20/25 14:37 Ondansetron Odt 4 Mg Tab PO 10/20/25 14:31 4 mg ONCE ONE Administration MDM - Female Genitourinary Lab Data Labs: Lab Results 10/20/25 Range/Units 14:25 Urine Color Yellow (Yellow) Urine Appearance Clear (Clear) Urine pH 6.0 (5.0-8.5) Ur Specific [place] >= 1.030 (1.000-1.030) Urine Protein 2+ A (Negative) Urine Glucose (UA) Negative (Negative) Urine Ketones Trace A (Negative) Urine Blood 3+ A (Negative) Urine Nitrite Negative (Negative) Urine Bilirubin 1+ A (Negative) Urine Urobilinogen 1.0 (0.2-1.0) Ur Leukocyte Esterase Negative (Negative) Urine RBC 2-5 A (0-2) Urine WBC 2-5 (0-5) Ur Squamous Epith Cells Moderate A (None-Few) Urine Bacteria Moderate A (None) Urine Mucus Many A (None) Urine Yeast Moderate A (None) Discharge Plan Discharge Clinical Impression: UTI (urinary tract infection) Patient Disposition: Home, Self-Care Condition: Stable Instructions: Urinary Tract Infection in Women (ED) Additional Instructions: Continue current care Follow-up as scheduled Report any change in her symptoms. Activity Level: No Restrictions Discharge Diet: Regular Prescriptions: No Action desogestrel-ethinyl estradiol [Isibloom] 0.15-0.03 mg tablet 1 tab PO QDAY divalproex 125 mg capsule, delayed rel sprinkle 125 mg PO TID multivitamin Tablet 1 tab PO QAM levocarnitine 330 mg tablet 330 mg PO BID Rx Instructions: must administer with a meal/food calcium carbonate [Calcium 600] 600 mg calcium (1,500 mg) tablet 600 mg PO QDAY polyethylene glycol 3350 [Miralax] 17 gram/dose powder 4 g PO ONCE melatonin 3 mg capsule 3 mg PO ONCE cholecalciferol (vitamin D3) 25 mcg (1,000 unit) capsule 25 mcg PO QDAY Follow Up/Referrals: Provider,Not a Local [Primary Care Provider, Family Practice] Stand Alone Forms: [facility] Info Instructions
[2025-10-20] MEDS: cefTRIAXone 1 GM VIAL IM (15:31)
[2025-10-20] MEDS: LIDOCAINE 1% 5 ml (pf) 5 ML VIAL 2.1 ML IM (15:31)
== END 2025-10-20 15:41 | disposition home or self-care (01) ==
PROVIDERS: Emergency Provider Internal Medicine
DX: N39.0 Urinary tract infection, site not specified (principal); Z87.440 Personal history of urinary (tract) infections; Z88.0 Allergy status to penicillin
CPT/HCPCS: 81001; 81003; 87086; 96374; 99283; 99284; A9270; J0696